=== PATIENT | female | born 1960 | race Caucasian/White ===

== ENCOUNTER → 2021-01-10 | Day surgery (SDC) | payer OTHER ==
[~2021-01-10] VITALS: Ht 157.5 cm; Wt 82.1 kg
[~2021-01-10] MED LIST: ALEVE220 M1 PO; ASPIRIN EC81 MG PO; CALCIUM 500 +1 EACH PO; CENTRUM SILVER1 EAC4 PO; FOLIC ACID1 M1 PO; FOSAMAX70 MG PO; PREDNISONE 5MG T5 MG PO; SIMPONI50 MG/0.1 SC; SYNTHROID 0.1M0.1 MG PO; TURMERIC500 M1 PO
[2021-01-10 08:40] LABS: HCT 42.6 % (37.0-47.0); HGB 13.9 g/dl (12.5-16.0); MCH 28.8 pg (25.0-31.0); MCHC 32.6 g/dL (32.0-36.0); MCV 88.2 fL (78.0-100.0); MPV 9.2 fL (6.0-9.5); RBC 4.83 M/uL (4.20-5.40); RDW 14.1 % (11.5-14.0)
[2021-01-10 09:31] LABS: CREATININE 0.63 mg/dL (0.51-0.95)
[2021-01-10 09:32] LABS: ALBUMIN 3.9 g/dL (3.4-5.0); BILIRUBIN - TOTAL 0.6 mg/dL (0.2-1.0); GLOBULIN (CALCULATION) 4.2 g/dL; TOTAL PROTEIN 8.1 g/dL (6.4-8.2)
== END | disposition home or self-care (01) ==
LOC: FAS 07:55
PROVIDERS: Surgery
DX: Z12.11 Encounter for screening for malignant neoplasm of colon (principal); K57.30 Diverticulosis of large intestine without perforation or abscess without bleeding; K20.90 Esophagitis, unspecified without bleeding; K29.50 Unspecified chronic gastritis without bleeding; M81.0 Age-related osteoporosis without current pathological fracture; Z79.899 Other long term (current) drug therapy; Z98.890 Other specified postprocedural states; Z87.891 Personal history of nicotine dependence; Z80.3 Family history of malignant neoplasm of breast
CPT/HCPCS: 43239; G0121; 36415; 76705; 80053; J1610; J2250; J2704; J7120

== ENCOUNTER 2021-06-21 16:51 | Emergency (ER) | payer OTHER ==
[~2021-06-21 16:51] MED LIST changes: +CLEOCIN300 MG PO
[2021-06-21] MEDS ORDERED: VALTREX1000 MG PO (19:50)
== END 2021-06-21 20:10 | disposition home or self-care (01) ==
LOC: FER 16:51
DX: B02.9 Zoster without complications (principal); U07.1 COVID-19
CPT/HCPCS: 99283